=== PATIENT | male | born 1985 | race Caucasian/White ===

== ENCOUNTER 2016-12-28 17:54 | Emergency (ER) | payer MEDICARE | END 2016-12-28 19:02 | disposition home or self-care (01) | LOC: D.ER 17:54 | DX: S90.122A Contusion of left lesser toe(s) without damage to nail, initial encounter (principal); W20.8XXA Other cause of strike by thrown, projected or falling object, initial encounter; Y93.89 Activity, other specified; Y92.019 Unspecified place in single-family (private) house as the place of occurrence of the external cause; S90.415A Abrasion, left lesser toe(s), initial encounter; F17.200 Nicotine dependence, unspecified, uncomplicated ==